=== PATIENT | male | born 1965 | race Asian ===

== ENCOUNTER → 2019-01-20 | Outpatient (CLI) | payer OTHER ==
[~2019-01-20] MED LIST: AMBIEN 5MG TABLE5 MG PO; COLACE 100100 MG/CAP PO; ETHAMBUTOL HYD400 MG PO; GLUCOPHAGE1000 MG PO; ISONIAZID100 MG PO; LANTUS100 U/ML PO; LANTUS100 U/ML SC; LASIX 20MG TABL20 MG PO; NOVOLOG 100U100 U/M1 SQ; PYRAZINAMIDE 5500 MG PO; RIFADIN300 MG PO; THORAZINE 225 MG/TAB PO; VITAMIN B-650 MG PO; ZESTRIL 10MG10 MG PO; ZESTRIL 20MG TA20 MG PO; ZOFRAN ODT4 MG PO; ZYLOPRIM 100MG100 MG PO
== END ==
LOC: COL.RAD 13:47
DX: Z01.818 Encounter for other preprocedural examination (principal); N18.6 End stage renal disease

== ENCOUNTER → 2019-01-23 | Outpatient (CLI) | payer OTHER | LOC: COL.LAB 12:20 | DX: N18.5 Chronic kidney disease, stage 5 (principal) ==

== ENCOUNTER 2020-10-04 01:23 | Emergency (ER) | payer OTHER, MEDICARE ==
[~2020-10-04] VITALS: Ht 177.8 cm; Wt 66.6 kg
[2020-10-04 04:12] VITALS: BP 155/87; PULSE 80; TEMP 98.6
== END 2020-10-04 04:27 | disposition home or self-care (01) ==
LOC: COL.ER 01:23
DX: H91.92 Unspecified hearing loss, left ear (principal); E11.9 Type 2 diabetes mellitus without complications; Z79.4 Long term (current) use of insulin

== ENCOUNTER → 2020-11-18 | Outpatient (CLI) | payer OTHER, MEDICARE | LOC: COL.RAD 07:32 | DX: H91.20 Sudden idiopathic hearing loss, unspecified ear (principal) | CPT/HCPCS: A9585 ==